=== PATIENT | female | born 1965 | race Caucasian/White ===

== ENCOUNTER 2018-11-18 21:37 | Emergency (ER) | payer MEDICAID ==
[~2018-11-18] VITALS: Ht 160 cm; Wt 79.5 kg
[2018-11-18 21:42] VITALS: BP 134/95; TEMP 99
[2018-11-18 22:40] LABS: MEAN CELL VOLUME 97 fl (80.0-100.0); MEAN CORPUSCULAR HEMOGLOBIN 32 pg (27.0-31.0); MEAN CORPUSCULAR HGB CONC 33 g/dl (33.0-37.0); MEAN PLATELET VOLUME 10.8 fl (7.4-10.4); PLATELET COUNT 175 K/mm3 (130-400); RED BLOOD COUNT 3.48 M/mm3 (4.10-5.30); REDCELL DISTRIBUTION WIDTH-CV 12.5 % (11.5-14.5)
[2018-11-18 22:42] LABS: HEMATOCRIT 33.7 % (37.0-47.0)
[2018-11-18 22:50] LABS: BILIRUBIN,TOTAL 0.4 mg/dL (0.0-1.0); CALCIUM 9.6 mg/dL (8.4-10.2); CREATININE, serum 0.59 (0.52-1.25); POTASSIUM 3.4 mmol/L (3.4-5.0); TOTAL PROTEIN 7.4 gm/dL (6.4-8.2)
[2018-11-18] MEDS ORDERED: TESSALON PERLE200 MG PO (23:12)
[2018-11-18] MEDS ORDERED: ZITHROMAX500 M2 PO (23:12)
[2018-11-18 23:17] LABS: BAND 17 % (0-10); BASOPHIL 1 % (0-2); EOSINOPHIL 1 % (0-4); HYPOCHROMIA 1+; LYMPHOCYTE 38 % (20.0-51.0); NEUTROPHILS 40 % (42.0-75.2); PLATELET ESTIMATE NORMAL (NORMAL)
[2018-11-19] MEDS ORDERED: CRESTOR5 MG PO (00:07)
[2018-11-19 01:00] VITALS: PULSE 75
[2018-11-19] MEDS ORDERED: LEVOXYL0.1 MG PO (02:23)
[2018-11-19] MEDS ORDERED: SINGULAIR 110 MG/TAB PO (02:24)
[2018-11-19] MEDS ORDERED: PROAIR HFA0.09 MG/AC IH (02:24)
[2018-11-19] MEDS ORDERED: PROVENTIL0.09 MG/A1 IH (02:24)
[2018-11-19] MEDS ORDERED: NAPROSYN500 MG PO (02:25)
== END 2018-11-19 01:00 | disposition home or self-care (01) ==
LOC: COL.ER 21:37
PROVIDERS: Emergency Medicine
DX: J18.1 Lobar pneumonia, unspecified organism (principal); E11.9 Type 2 diabetes mellitus without complications; E78.5 Hyperlipidemia, unspecified; E03.9 Hypothyroidism, unspecified; Z87.891 Personal history of nicotine dependence
CPT/HCPCS: A4216; J0696; J1885; J7030

== ENCOUNTER 2019-01-13 20:07 | Emergency (ER) | payer MEDICAID ==
[~2019-01-13] VITALS: Ht 160 cm; Wt 77.7 kg
[~2019-01-13 20:07] MED LIST: CRESTOR5 MG PO; LEVOXYL0.1 MG PO; NAPROSYN500 MG PO; PROAIR HFA0.09 MG/AC IH; PROVENTIL0.09 MG/A1 IH; SINGULAIR 110 MG/TAB PO; TESSALON PERLE200 MG PO; ZITHROMAX500 M2 PO
[2019-01-13 21:28] LABS: BASO % 0.3 % (0.0-2.0); EOS % 0.2 % (0-4.0); GRAN # 5.7 (1.4-6.5); GRAN % 89.7 % (42.2-75.2); HEMATOCRIT 29.7 % (37.0-47.0); HEMOGLOBIN 9.9 g/dl (12.5-16.0); LYMPH # 0.5 (1.2-3.4); LYMPH % 7.3 % (20.0-51.0); MEAN CELL VOLUME 95 fl (80.0-100.0); MEAN CORPUSCULAR HEMOGLOBIN 32 pg (27.0-31.0); MEAN CORPUSCULAR HGB CONC 33 g/dl (33.0-37.0); MEAN PLATELET VOLUME 11.1 fl (7.4-10.4); MONO # 0.1 (0.1-0.6); MONO % 1.9 % (1.7-9.3); PLATELET COUNT 122 K/mm3 (130-400); RED BLOOD COUNT 3.13 M/mm3 (4.10-5.30); REDCELL DISTRIBUTION WIDTH-CV 12.5 % (11.5-14.5)
[2019-01-13 21:32] LABS: COLLECTION METHOD CLEAN CATCH
[2019-01-13 21:41] LABS: BILIRUBIN,TOTAL 0.9 mg/dL (0.0-1.0); CREATININE, serum 0.6 (0.52-1.25); TOTAL PROTEIN 5.9 gm/dL (6.4-8.2)
[2019-01-13 21:43] LABS: POTASSIUM 2.9 mmol/L (3.4-5.0)
[2019-01-13 22:11] LABS: MUCOUS Present /lpf; PH 5 (5-8); SQUAMOUS EPITHELIAL 0-2 /hpf; URINE APPEARANCE Cloudy; URINE BACTERIA Rare /hpf; URINE BILIRUBIN Negative (NEGATIVE); URINE BLOOD Negative (NEGATIVE); URINE COLOR Yellow; URINE GLUCOSE Negative (NEGATIVE); URINE KETONE Negative (NEGATIVE); URINE LEUKOCYTE ESTERASE 2+ (NEGATIVE); URINE NITRATE Positive (NEGATIVE); URINE PROTEIN(semi-quant) 1+ (NEGATIVE); URINE UROBILINOGEN >=4.0 mg/dL (NEGATIVE)
[2019-01-13 23:41] VITALS: TEMP 98.1
[2019-01-14 02:30] VITALS: BP 107/58; PULSE 70
== END 2019-01-14 02:30 | disposition short-term general hospital (02) ==
LOC: COL.ER 20:07
PROVIDERS: Emergency Medicine
DX: A41.9 Sepsis, unspecified organism (principal); N39.0 Urinary tract infection, site not specified; R65.21 Severe sepsis with septic shock; N12 Tubulo-interstitial nephritis, not specified as acute or chronic; E11.9 Type 2 diabetes mellitus without complications; E78.5 Hyperlipidemia, unspecified; E03.9 Hypothyroidism, unspecified; Z90.49 Acquired absence of other specified parts of digestive tract
CPT/HCPCS: J2543; J3010; J7030; J7060; Q9967

== ENCOUNTER 2019-01-29 13:58 | Emergency (ER) | payer MEDICAID ==
[~2019-01-29] VITALS: Ht 160 cm; Wt 77.7 kg
[2019-01-29 14:13] VITALS: TEMP 97.7
[2019-01-29 14:34] LABS: COLLECTION METHOD CLEAN CATCH
[2019-01-29 14:39] LABS: PH 5 (5-8); URINE APPEARANCE Clear; URINE COLOR Yellow; URINE GLUCOSE Negative (NEGATIVE); URINE KETONE Negative (NEGATIVE); URINE PROTEIN(semi-quant) Negative (NEGATIVE)
[2019-01-29 14:40] LABS: MUCOUS Present /lpf; URINE BACTERIA None Seen /hpf; URINE BILIRUBIN Negative (NEGATIVE); URINE BLOOD Negative (NEGATIVE); URINE LEUKOCYTE ESTERASE Negative (NEGATIVE); URINE NITRATE Negative (NEGATIVE); URINE RBC 0-2 /hpf; URINE UROBILINOGEN Negative (NEGATIVE)
[2019-01-29 15:37] LABS: BASO # 0.1 (0.0-0.2); EOS # 0.1 (0.0-0.7); GRAN # 2.9 (1.4-6.5); GRAN % 46.9 % (42.2-75.2); HEMATOCRIT 38.5 % (37.0-47.0); HEMOGLOBIN 12.3 g/dl (12.5-16.0); LYMPH # 2.6 (1.2-3.4); LYMPH % 42.2 % (20.0-51.0); MEAN CELL VOLUME 98 fl (80.0-100.0); MEAN CORPUSCULAR HEMOGLOBIN 31 pg (27.0-31.0); MEAN CORPUSCULAR HGB CONC 32 g/dl (33.0-37.0); MEAN PLATELET VOLUME 10.9 fl (7.4-10.4); MONO # 0.5 (0.1-0.6); MONO % 7.6 % (1.7-9.3); PLATELET COUNT 233 K/mm3 (130-400); RED BLOOD COUNT 3.92 M/mm3 (4.10-5.30); REDCELL DISTRIBUTION WIDTH-CV 12.6 % (11.5-14.5)
[2019-01-29 15:41] LABS: ALBUMIN 4.2 gm/dL (3.5-5.0); BILIRUBIN,TOTAL 0.6 mg/dL (0.0-1.0); C-REACTIVE PROTEIN 0.5 mg/dL (0.0-0.9); CALCIUM 9.8 mg/dL (8.4-10.2); CREATININE, serum 0.63 (0.52-1.25); POTASSIUM 3.9 mmol/L (3.4-5.0); TOTAL PROTEIN 7.8 gm/dL (6.4-8.2)
[2019-01-29 16:21] VITALS: BP 126/86; PULSE 69
== END 2019-01-29 16:27 | disposition home or self-care (01) ==
LOC: COL.ER 13:58
PROVIDERS: Physician Assistant
DX: R10.9 Unspecified abdominal pain (principal); E03.9 Hypothyroidism, unspecified; J45.909 Unspecified asthma, uncomplicated; E78.5 Hyperlipidemia, unspecified; Z87.891 Personal history of nicotine dependence; Z98.890 Other specified postprocedural states; Z90.49 Acquired absence of other specified parts of digestive tract
CPT/HCPCS: J1885; J7030

== ENCOUNTER 2019-06-04 12:42 | Emergency (ER) | payer MEDICAID ==
[~2019-06-04] VITALS: Ht 160 cm; Wt 82.7 kg
[2019-06-04 12:48] VITALS: BP 142/84; TEMP 98
[2019-06-04] MEDS ORDERED: NORCO 325 MG-51 TAB PO (13:00)
[2019-06-04] MEDS ORDERED: AMOXICILLIN 8751 TAB PO (13:00)
[2019-06-04 13:06] VITALS: PULSE 82
== END 2019-06-04 13:06 | disposition home or self-care (01) ==
LOC: COL.ER 12:42
DX: K04.7 Periapical abscess without sinus (principal); K02.9 Dental caries, unspecified

== ENCOUNTER 2019-11-13 11:03 | Emergency (ER) | payer MEDICAID ==
[~2019-11-13] VITALS: Ht 160 cm; Wt 77.3 kg
[~2019-11-13 11:03] MED LIST changes: +AMOXICILLIN 8751 TAB PO; +CEFTIN 250250 MG/TAB PO; +CYMBALTA 30MG30 MG PO; +FLOVENT 110MCG7.9 GM IH; +LIPITOR 10MG10 MG PO; +NORCO 325 MG-51 TAB PO
[2019-11-13 11:21] VITALS: TEMP 99.2
[2019-11-13 13:01] LABS: BASO # 0.1 (0.0-0.2); BASO % 0.5 % (0.0-2.0); EOS # 0.2 (0.0-0.7); GRAN # 5.5 (1.4-6.5); GRAN % 59.1 % (42.2-75.2); HEMOGLOBIN 12.9 g/dl (12.5-16.0); LYMPH # 2.9 (1.2-3.4); LYMPH % 30.6 % (20.0-51.0); MEAN CELL VOLUME 98 fl (80.0-100.0); MEAN CORPUSCULAR HEMOGLOBIN 32 pg (27.0-31.0); MEAN CORPUSCULAR HGB CONC 33 g/dl (33.0-37.0); MEAN PLATELET VOLUME 10.7 fl (7.4-10.4); MONO # 0.7 (0.1-0.6); MONO % 7.3 % (1.7-9.3); PLATELET COUNT 223 K/mm3 (130-400); RED BLOOD COUNT 3.98 M/mm3 (4.10-5.30); REDCELL DISTRIBUTION WIDTH-CV 12.5 % (11.5-14.5)
[2019-11-13 13:21] LABS: ALBUMIN 4.7 gm/dL (3.5-5.0); BILIRUBIN,TOTAL 0.5 mg/dL (0.0-1.0); CALCIUM 10.1 mg/dL (8.4-10.2); CREATININE, serum 0.64 (0.52-1.25); TOTAL PROTEIN 8.2 gm/dL (6.4-8.2)
[2019-11-13 14:51] LABS: COLLECTION METHOD CLEAN CATCH
[2019-11-13 15:05] LABS: MUCOUS Present /lpf; PH 5 (5-8); SQUAMOUS EPITHELIAL 0-2 /hpf; URINE APPEARANCE Hazy; URINE BACTERIA None Seen /hpf; URINE BILIRUBIN Negative (NEGATIVE); URINE BLOOD Negative (NEGATIVE); URINE COLOR Yellow; URINE GLUCOSE Negative (NEGATIVE); URINE KETONE Negative (NEGATIVE); URINE LEUKOCYTE ESTERASE Trace (NEGATIVE); URINE NITRATE Negative (NEGATIVE); URINE PROTEIN(semi-quant) Negative (NEGATIVE); URINE RBC 0-2 /hpf; URINE UROBILINOGEN Negative (NEGATIVE)
[2019-11-13 16:15] VITALS: BP 104/61; PULSE 84
== END 2019-11-13 16:04 | disposition home or self-care (01) ==
LOC: COL.ER 11:03
PROVIDERS: Nurse Practitioner Primary Care
DX: R50.9 Fever, unspecified (principal); R05 Cough; E11.9 Type 2 diabetes mellitus without complications; J45.909 Unspecified asthma, uncomplicated; F32.9 Major depressive disorder, single episode, unspecified; Z20.828 Contact with and (suspected) exposure to other viral communicable diseases; Z79.51 Long term (current) use of inhaled steroids; Z90.89 Acquired absence of other organs
CPT/HCPCS: J1170; J2405; J7040

== ENCOUNTER 2019-12-12 02:08 | Observation (INO) | payer MEDICAID ==
[~2019-12-12] VITALS: Ht 160 cm; Wt 86.9 kg
[2019-12-12 02:39] LABS: BASO % 0.4 % (0.0-2.0); EOS # 0.2 (0.0-0.7); GRAN # 4.5 (1.4-6.5); GRAN % 52.9 % (42.2-75.2); HEMOGLOBIN 11.3 g/dl (12.5-16.0); LYMPH % 35.7 % (20.0-51.0); MEAN CELL VOLUME 99 fl (80.0-100.0); MEAN CORPUSCULAR HEMOGLOBIN 33 pg (27.0-31.0); MEAN CORPUSCULAR HGB CONC 33 g/dl (33.0-37.0); MEAN PLATELET VOLUME 10.4 fl (7.4-10.4); MONO # 0.7 (0.1-0.6); MONO % 8.5 % (1.7-9.3); PLATELET COUNT 225 K/mm3 (130-400); RED BLOOD COUNT 3.48 M/mm3 (4.10-5.30); REDCELL DISTRIBUTION WIDTH-CV 12.1 % (11.5-14.5)
[2019-12-12 02:44] LABS: HEMATOCRIT 34.4 % (37.0-47.0)
[2019-12-12 02:49] LABS: ALANINE AMINOTRANSFERASE 70 U/L (4-34); ALBUMIN 4.3 gm/dL (3.5-5.0); ALKALINE PHOSPHATASE 95 U/L (50-136); ANION GAP 8 mmol/L (7-16); AST,SGOT 83 U/L (15-37); BILIRUBIN,TOTAL 0.4 mg/dL (0.0-1.0); BLOOD UREA NITROGEN 17 mg/dL (7-17); CALCIUM 9.7 mg/dL (8.4-10.2); CARBON DIOXIDE 23 mmol/L (22-30); CHLORIDE 104 mmol/L (98-107); CREATININE, serum 0.84 (0.52-1.25); GLUCOSE 119 mg/dL (74-106); LIPASE 104 U/L (23-300); MAGNESIUM 1.9 mg/dL (1.6-2.3); POTASSIUM 4.2 mmol/L (3.4-5.0); SODIUM 135 mmol/L (137-145); TOTAL PROTEIN 7.6 gm/dL (6.4-8.2)
[2019-12-12 03:04] LABS: TROPONIN-I < 0.012 ng/mL (0.000-0.035)
[2019-12-12 03:32] LABS: COLLECTION METHOD CLEAN CATCH
[2019-12-12 03:38] LABS: PH 5 (5-8); SQUAMOUS EPITHELIAL 0-2 /hpf; URINE APPEARANCE Clear; URINE BACTERIA Rare /hpf; URINE BILIRUBIN Negative (NEGATIVE); URINE BLOOD Negative (NEGATIVE); URINE COLOR Yellow; URINE GLUCOSE Negative (NEGATIVE); URINE KETONE Negative (NEGATIVE); URINE LEUKOCYTE ESTERASE Trace (NEGATIVE); URINE NITRATE Negative (NEGATIVE); URINE PROTEIN(semi-quant) Negative (NEGATIVE); URINE RBC 0-2 /hpf; URINE UROBILINOGEN Negative (NEGATIVE)
[2019-12-12 07:52] LABS: CHOLESTEROL RISK RATIO 3.9
[2019-12-12 08:28] VITALS: BP 95/45; PULSE 73; TEMP 98.2
--- NOTE | 2019-12-12 10:58 | NUR ---
PATIENT HAS BEEN STABLE SINCE ARRIVING TO THE FLOOR. STATES PAIN HAS RETURNED IN THE LEFT ARM CHEST AREA. PRN PAIN MEDICATION WILL BE PROVIDED PER ORDERS. OTHER THAN THAT SHE IS CONFORTABLE. IV LOOKED LEAKY BUT FLUSHED WELL. NO OTHER NEEDS AT THIS TIME. cALL LIGHT IS IN REACH.
[2019-12-12] MEDS ORDERED: PRILOSEC 20MG20 MG PO (11:11)
[2019-12-12 12:44] VITALS: BP 112/71; PULSE 76; TEMP 97.7
--- NOTE | 2019-12-12 16:09 | NUR ---
Patient has been feeling beeter since recieving meds this morning. sh ehas been resting comfortably in and out of sleep this afternoon. is currently at the bedside. States she is comfortable. No other needs at this time. Call light is in reach. Will continue to monitor.
--- NOTE | 2019-12-12 16:23 | NUR ---
MARIA D met with the patient and her , Ismael (ph#[phone]), to discuss discharge plan. The patient lives in [place] with her , two sons, and brother. She reports independence with ADLs and does not have any DME. The patient's PCP is Dr. Donny Davis and she receives her medications at [facility]. She reports occasional difficulties affording her meds. The patient does not have advanced directives completed, but she was interested in obtaining a form for DPOA-HC. MARIA D provided. The patient was also interested in meals on wheels and food assistance. MARIA D provided the patient with the phone number for meals on wheels and provided her information and the phone number for [place] [employer]. The patient plans to return home with her family upon discharge. No additional needs at this time.
[2019-12-12 17:35] VITALS: BP 113/70; PULSE 80; TEMP 98
--- NOTE | 2019-12-12 17:58 | NUR ---
PT WAS COMPLAINING OF ABDOMINAL PAIN IN THE AREA OF HER HERNIA. REQUESTED TRAMADOL SHE RECIEVED EARLIER. PRN DOSE WAS GIVEN. NO OTHER NEEDS AT THIS TIME. CALL LIGHT IS IN REACH.
[2019-12-12 19:28] VITALS: BP 114/62; PULSE 85; TEMP 98
--- NOTE | 2019-12-12 20:30 | NUR ---
Initial shift assessment done- states feeling pretty good tonight- denies chest pain, Tele on, requesting her night inhaler- resp called to inform,, states no BM for specimen- wondering if she should have a stool softener-would like me to call to see--will give apple juice at this time,,Did let PA know and states no new orders at this time. Does have headache 01/15- will give Tylenol at this time.
[2019-12-12 23:31] VITALS: BP 107/55; PULSE 78; TEMP 98.1
[2019-12-13 03:42] VITALS: BP 107/65; PULSE 87; TEMP 98.8
[2019-12-13 05:05] VITALS: BP 130/85
--- NOTE | 2019-12-13 05:05 | NUR ---
States headache is pounding 03/18- was given tylenol an hour ago- Tramadol given at this time- immediately had very large emesis-- ice bag to head/neck-- within 10 minutes vomited x4,, Dr. Campos called and order obtained for Zofran and Morphine IV for severe headache,, also states ok to just D/C Nitropaste- VSS
--- NOTE | 2019-12-13 05:42 | NUR ---
Feeling slightly better- sitting up in chair- bed made - requesting sprite and saltine cracker-- pt very apprciative of DR Campos for ordering meds that were given-
[2019-12-13 06:05] LABS: BASO % 0.5 % (0.0-2.0); EOS # 0.1 (0.0-0.7); EOS % 1.4 % (0-4.0); GRAN # 3.9 (1.4-6.5); GRAN % 51.3 % (42.2-75.2); LYMPH % 39.1 % (20.0-51.0); MEAN CELL VOLUME 99 fl (80.0-100.0); MEAN CORPUSCULAR HEMOGLOBIN 32 pg (27.0-31.0); MEAN CORPUSCULAR HGB CONC 32 g/dl (33.0-37.0); MEAN PLATELET VOLUME 10.7 fl (7.4-10.4); MONO # 0.6 (0.1-0.6); MONO % 7.3 % (1.7-9.3); PLATELET COUNT 211 K/mm3 (130-400); RED BLOOD COUNT 3.74 M/mm3 (4.10-5.30); REDCELL DISTRIBUTION WIDTH-CV 12.2 % (11.5-14.5)
[2019-12-13 06:29] LABS: ALBUMIN 4.5 gm/dL (3.5-5.0); BILIRUBIN,TOTAL 0.6 mg/dL (0.0-1.0); CALCIUM 9.6 mg/dL (8.4-10.2); CREATININE, serum 0.59 (0.52-1.25); MAGNESIUM 2.2 mg/dL (1.6-2.3); POTASSIUM 4.3 mmol/L (3.4-5.0); TOTAL PROTEIN 8.1 gm/dL (6.4-8.2)
[2019-12-13 08:18] VITALS: BP 115/67; PULSE 89; TEMP 97.9
--- NOTE | 2019-12-13 09:25 | NUR ---
PATIENT ASSESSMENT COMPLETED. SHE DENIES ANY NEED FOR FURTHER PAIN MEDICATION AT THIS TIME. AT BEDSIDE.
--- NOTE | 2019-12-13 10:24 | NUR ---
PATIENT GIVEN TYLENOL AND ULTRAM FOR HEADACHE.
--- NOTE | 2019-12-13 10:25 | NUR ---
PATIENT ASKS FOR IV MEDICATION FOR HEADACHE. SHE STATES SHE MIGHT BE GOING HOME TODAY I TALKED WITH HER ABOUT TAKING THE ORAL MEDICATIONS FIRST THEN MAYBE IF THAT DOESN'T WORK THEN I WILL GIVE HER PRN MORPHINE.
[2019-12-13] MEDS ORDERED: ZOFRAN 4MG T4 MG/TAB PO (11:57)
[2019-12-13] MEDS ORDERED: IMITREX50 MG PO (11:58)
[2019-12-13] MEDS ORDERED: ASPIRIN 81M81 MG/TA2 PO (11:59)
[2019-12-13 12:14] VITALS: BP 100/57; PULSE 92; TEMP 97.9
--- NOTE | 2019-12-13 14:20 | NUR ---
PATIENT DISCHARGED TO HOME VIA WHEELCHAIR WITH AND BELONGINGS. SHE DENIES QUESTIONS ABOUT DISCHARGE PAPERWORK. TELE IS REMOVE AND IV REMOVED WITH CATH INTACT.
[2019-12-15] MEDS ORDERED: ASPIRIN E.C. 8181 MG PO (07:40)
[2019-12-15] MEDS ORDERED: FLOVENT 110MCG7.9 GM IH (07:44)
[2019-12-15] MEDS ORDERED: CYMBALTA 60MG60 MG PO (07:45)
[2019-12-15] MEDS ORDERED: ZOFRAN 4MG T4 MG/TAB PO (07:47)
[2019-12-15] MEDS ORDERED: IMITREX50 MG PO (07:48)
== END 2019-12-13 14:20 | disposition home or self-care (01) ==
LOC: COL.ER 02:08 → MEDICAL 04:07
PROVIDERS: Emergency Medicine; Internal Medicine; Physician Assistant
DX: R07.89 Other chest pain (principal); R19.7 Diarrhea, unspecified; R94.5 Abnormal results of liver function studies; R73.03 Prediabetes; E03.9 Hypothyroidism, unspecified; J45.909 Unspecified asthma, uncomplicated; M79.622 Pain in left upper arm; E78.1 Pure hyperglyceridemia; K21.9 Gastro-esophageal reflux disease without esophagitis; K76.0 Fatty (change of) liver, not elsewhere classified; F32.9 Major depressive disorder, single episode, unspecified; Z90.49 Acquired absence of other specified parts of digestive tract; Z79.899 Other long term (current) drug therapy; Z86.718 Personal history of other venous thrombosis and embolism; Z83.3 Family history of diabetes mellitus; Z82.49 Family history of ischemic heart disease and other diseases of the circulatory system
CPT/HCPCS: G0378; J1170; J1650; J2270; J2405; J7030

== ENCOUNTER → 2019-12-15 | Outpatient (CLI) | payer MEDICAID ==
[~2019-12-15] VITALS: Ht 160 cm; Wt 84.5 kg
[~2019-12-15] MED LIST changes: +ASPIRIN 81M81 MG/TA2 PO; +ASPIRIN E.C. 8181 MG PO; +CYMBALTA 60MG60 MG PO; +IMITREX50 MG PO; +PRILOSEC 20MG20 MG PO; +ZOFRAN 4MG T4 MG/TAB PO
[2019-12-15 07:49] VITALS: BP 125/82; PULSE 94
[2019-12-15 09:00] VITALS: BP 126/82; PULSE 18
[2019-12-15 09:01] VITALS: BP 117/72; PULSE 114
[2019-12-15 09:02] VITALS: BP 112/70; PULSE 121
[2019-12-15 09:03] VITALS: BP 122/76; PULSE 114
[2019-12-15 09:04] VITALS: BP 133/80; PULSE 107
== END ==
LOC: COL.CARD 07:25
DX: R07.9 Chest pain, unspecified (principal)
CPT/HCPCS: A9500; J2785

== ENCOUNTER → 2020-09-20 | Outpatient (CLI) | payer MEDICAID ==
[~2020-09-20] MED LIST changes: +B-121000 MCG PO; +CALCIUM CITRAT200 M2 PO; +CELEBREX 1100 MG/CAP PO; +EPA FISH OIL1 SGL PO; +PROTONIX20 MG PO; +SYNTHROID0.112 MG/T PO; +VITAMIND3 5000 PO
== END ==
LOC: COL.RAD 08:11
DX: K76.0 Fatty (change of) liver, not elsewhere classified (principal)

== ENCOUNTER 2020-10-21 08:54 | Day surgery (SDC) | payer MEDICAID ==
[~2020-10-21] VITALS: Ht 160.1 cm; Wt 82.3 kg
[2020-10-21] VITALS (9 sets, daily range): BP systolic 95–127; BP diastolic 64–81; PULSE 64–86; TEMP 98
[~2020-10-21 08:54] MED LIST changes: -B-121000 MCG PO; -CALCIUM CITRAT200 M2 PO; -CELEBREX 1100 MG/CAP PO; -EPA FISH OIL1 SGL PO; -PROTONIX20 MG PO; -SYNTHROID0.112 MG/T PO; -VITAMIND3 5000 PO
[2020-10-21 10:07] LABS: HEMATOCRIT 38.3 % (37.0-47.0); HEMOGLOBIN 12.6 g/dl (12.5-16.0); MEAN CELL VOLUME 97 fl (80.0-100.0); MEAN CORPUSCULAR HEMOGLOBIN 32 pg (27.0-31.0); MEAN CORPUSCULAR HGB CONC 33 g/dl (33.0-37.0); PLATELET COUNT 196 K/mm3 (130-400); RED BLOOD COUNT 3.95 M/mm3 (4.10-5.30); REDCELL DISTRIBUTION WIDTH-CV 11.9 % (11.5-14.5)
[2020-10-21 10:08] LABS: CALCIUM 9.7 mg/dL (8.4-10.2); CREATININE, serum 0.62 (0.52-1.25); POTASSIUM 3.8 mmol/L (3.4-5.0)
[2020-10-21 10:22] LABS: INR 1.1 (0.8-3.0); PROTHROMBIN TIME 11.8 SECONDS (9.7-12.8)
[2020-10-21 10:24] LABS: PARTIAL THROMBOPLASTIN TIME 31.2 SECONDS (26.0-37.0)
[2020-10-21] MEDS ORDERED: LIPITOR 10MG10 MG PO (10:37)
[2020-10-21] MEDS ORDERED: CALCIUM CITRAT200 M2 PO (10:38)
[2020-10-21] MEDS ORDERED: CELEBREX 1100 MG/CAP PO (10:38)
[2020-10-21] MEDS ORDERED: B-121000 MCG PO (10:40)
[2020-10-21] MEDS ORDERED: EPA FISH OIL1 SGL PO (10:41)
[2020-10-21] MEDS ORDERED: FLOVENT 110MCG7.9 GM IH (10:42)
[2020-10-21] MEDS ORDERED: SYNTHROID0.112 MG/T PO (10:43)
[2020-10-21] MEDS ORDERED: PROTONIX20 MG PO (10:44)
[2020-10-21] MEDS ORDERED: VITAMIND3 5000 PO (10:45)
--- NOTE | 2020-10-21 16:10 | NUR ---
Air has been removed from TR band in 2 ml increments without bleeding or complication. Rt radial puncture site dressed with folded 2x2 and robbie. DC instructions reviewed at length with pt who expresses understanding. She is steady on feet to restroom. IV DC'd with catheter intact. She is assisted out to son's car by wheelchair with personal belongings.
== END 2020-10-21 16:10 | disposition home or self-care (01) ==
LOC: COL.CAR 08:54
PROVIDERS: Internal Medicine Cardiovascular Disease
DX: R07.89 Other chest pain (principal); R06.00 Dyspnea, unspecified; E78.2 Mixed hyperlipidemia; J45.909 Unspecified asthma, uncomplicated; R73.03 Prediabetes; E03.9 Hypothyroidism, unspecified; E78.5 Hyperlipidemia, unspecified; M19.90 Unspecified osteoarthritis, unspecified site; G47.30 Sleep apnea, unspecified; D50.9 Iron deficiency anemia, unspecified; K21.9 Gastro-esophageal reflux disease without esophagitis; K76.0 Fatty (change of) liver, not elsewhere classified; Z86.16 Personal history of COVID-19; Z20.822 Contact with and (suspected) exposure to COVID-19; Z87.891 Personal history of nicotine dependence; Z79.82 Long term (current) use of aspirin; Z79.890 Hormone replacement therapy; Z79.899 Other long term (current) drug therapy
CPT/HCPCS: C1769; J1644; J2250; J3010

== ENCOUNTER 2021-07-07 18:36 | Emergency (ER) | payer MEDICAID ==
[~2021-07-07] VITALS: Ht 160 cm; Wt 79.5 kg
[~2021-07-07 18:36] MED LIST changes: +B-121000 MCG PO; +CALCIUM CITRAT200 M2 PO; +CELEBREX 1100 MG/CAP PO; +EPA FISH OIL1 SGL PO; +PROTONIX20 MG PO; +SYNTHROID0.112 MG/T PO; +VITAMIND3 5000 PO
[2021-07-07 18:44] VITALS: TEMP 98.5
[2021-07-07] MEDS ORDERED: ULTRAM 50MG TAB50 MG PO (19:25)
[2021-07-07] MEDS ORDERED: AMOXICILLIN 50500 MG PO (19:25)
[2021-07-07 19:48] VITALS: BP 150/91; PULSE 83
== END 2021-07-07 19:48 | disposition home or self-care (01) ==
LOC: COL.ER 18:36
DX: K02.9 Dental caries, unspecified (principal); E11.9 Type 2 diabetes mellitus without complications; E03.9 Hypothyroidism, unspecified; Z79.890 Hormone replacement therapy

== ENCOUNTER 2021-11-16 20:35 | Emergency (ER) | payer MEDICAID ==
[~2021-11-16] VITALS: Ht 160 cm; Wt 81.5 kg
[~2021-11-16 20:35] MED LIST changes: +AMOXICILLIN 50500 MG PO; +ULTRAM 50MG TAB50 MG PO
[2021-11-16 20:53] VITALS: TEMP 97.3
[2021-11-16 21:27] LABS: COLLECTION METHOD CLEAN CATCH
[2021-11-16 21:33] LABS: MUCOUS Present (NOT PRESENT); PH 5 (5-8); SQUAMOUS EPITHELIAL 0-2 /hpf (0-10); URINE APPEARANCE Clear (CLEAR/HAZY); URINE BACTERIA None Seen /hpf (NONE SEEN); URINE BILIRUBIN Negative (NEGATIVE); URINE BLOOD Negative (NEGATIVE); URINE COLOR Yellow (YELLOW); URINE GLUCOSE Negative (NEGATIVE); URINE KETONE Negative (NEGATIVE); URINE LEUKOCYTE ESTERASE Negative (NEGATIVE); URINE NITRATE Negative (NEGATIVE); URINE PROTEIN(semi-quant) Negative (NEGATIVE); URINE RBC None Seen /hpf (0-2); URINE UROBILINOGEN Negative (NEGATIVE)
[2021-11-16 21:44] LABS: BASO % 0.4 % (0.0-2.0); EOS # 0.2 K/mm3 (0.0-0.7); EOS % 1.9 % (0.0-4.0); GRAN # 4.6 K/mm3 (1.4-6.5); GRAN % 57.6 % (42.2-75.2); HEMOGLOBIN 11.7 g/dl (12.5-16.0); LYMPH # 2.6 K/mm3 (1.2-3.4); LYMPH % 33.1 % (20.0-51.0); MEAN CELL VOLUME 97 fl (80.0-100.0); MEAN CORPUSCULAR HEMOGLOBIN 32 pg (27-31); MEAN CORPUSCULAR HGB CONC 33 g/dl (33.0-37.0); MEAN PLATELET VOLUME 11.4 fl (7.4-10.4); MONO # 0.5 K/mm3 (0.1-0.6); MONO % 6.7 % (1.7-9.3); PLATELET COUNT 182 K/mm3 (130-400); REDCELL DISTRIBUTION WIDTH-CV 12.2 % (11.5-14.5)
[2021-11-16 22:02] LABS: ALBUMIN 3.9 gm/dL (3.5-5.0); BILIRUBIN,TOTAL 0.4 mg/dL (0.2-1.2); CALCIUM 9.6 mg/dL (8.4-10.2); CREATININE, serum 0.8 mg/dL (0.57-1.11); POTASSIUM 3.7 mmol/L (3.5-4.5); TOTAL PROTEIN 7.1 gm/dL (6.2-8.1)
[2021-11-16] MEDS ORDERED: NORCO 325 MG-51 TAB PO (23:22)
[2021-11-16] MEDS ORDERED: CEPHALEXIN500 M1 PO (23:26)
[2021-11-17 00:06] VITALS: BP 120/57; PULSE 72
== END 2021-11-17 00:06 | disposition home or self-care (01) ==
LOC: COL.ER 20:35
PROVIDERS: Personal Emergency Response Attendant
DX: R10.30 Lower abdominal pain, unspecified (principal); E11.9 Type 2 diabetes mellitus without complications; Z90.49 Acquired absence of other specified parts of digestive tract; Z98.890 Other specified postprocedural states; Z79.84 Long term (current) use of oral hypoglycemic drugs
CPT/HCPCS: J2270; J2405; J7040; Q9967

== ENCOUNTER 2021-12-11 13:45 | Emergency (ER) | payer MEDICAID ==
[~2021-12-11] VITALS: Ht 160 cm; Wt 77.3 kg
[~2021-12-11 13:45] MED LIST changes: +CEPHALEXIN500 M1 PO
[2021-12-11 13:59] VITALS: TEMP 98.5
[2021-12-11 14:26] LABS: BASO # 0.1 K/mm3 (0.0-0.2); BASO % 0.8 % (0.0-2.0); EOS # 0.7 K/mm3 (0.0-0.7); EOS % 9.2 % (0.0-4.0); GRAN # 3.2 K/mm3 (1.4-6.5); GRAN % 40.7 % (42.2-75.2); HEMOGLOBIN 11.6 g/dl (12.5-16.0); LYMPH # 3.4 K/mm3 (1.2-3.4); MEAN CELL VOLUME 98 fl (80.0-100.0); MEAN CORPUSCULAR HEMOGLOBIN 32 pg (27-31); MEAN CORPUSCULAR HGB CONC 33 g/dl (33.0-37.0); MONO # 0.5 K/mm3 (0.1-0.6); PLATELET COUNT 195 K/mm3 (130-400); RED BLOOD COUNT 3.61 M/mm3 (4.10-5.30); REDCELL DISTRIBUTION WIDTH-CV 12.5 % (11.5-14.5)
[2021-12-11 14:29] LABS: HEMATOCRIT 35.5 % (37.0-47.0)
[2021-12-11 14:33] LABS: PROTHROMBIN TIME 11.9 SECONDS (9.7-12.8)
[2021-12-11 14:35] LABS: PARTIAL THROMBOPLASTIN TIME 32.1 SECONDS (26.0-37.0)
[2021-12-11 14:44] LABS: ALANINE AMINOTRANSFERASE 23 U/L (0-55); ALBUMIN 3.6 gm/dL (3.5-5.0); ALKALINE PHOSPHATASE 70 U/L (40-150); ANION GAP 10 mmol/L (7-16); AST,SGOT 21 U/L (5-34); BILIRUBIN,TOTAL 0.4 mg/dL (0.2-1.2); BLOOD UREA NITROGEN 13 mg/dL (10-20); CALCIUM 9.1 mg/dL (8.4-10.2); CARBON DIOXIDE 21 mmol/L (22-29); CHLORIDE 112 mmol/L (98-107); CREATININE, serum 0.67 mg/dL (0.57-1.11); GLUCOSE 105 mg/dL (70-99); POTASSIUM 3.4 mmol/L (3.5-4.5); SODIUM 143 mmol/L (136-145); TOTAL PROTEIN 6.6 gm/dL (6.2-8.1)
[2021-12-11 14:53] LABS: TROPONIN-I < 0.010 ng/mL (0.00-0.033)
[2021-12-11] MEDS ORDERED: NORCO 325 MG-51 TAB PO (16:10)
[2021-12-11 18:00] VITALS: BP 123/87; PULSE 78
== END 2021-12-11 17:41 | disposition home or self-care (01) ==
LOC: COL.ER 13:45
PROVIDERS: Family Medicine
DX: R07.89 Other chest pain (principal); Z28.310 Unvaccinated for COVID-19
CPT/HCPCS: J2270

== ENCOUNTER 2021-12-29 11:15 | Outpatient (RCR) | payer MEDICAID | END 2022-01-05 | LOC: MKS.ESL.PT | DX: M47.892 Other spondylosis, cervical region (principal) | CPT/HCPCS: G0283-GP ==

== ENCOUNTER 2022-09-22 13:15 | Outpatient (RCR) | payer MEDICAID ==
[~2022-09-22 13:15] MED LIST changes: +MEDROL 4MG DOSPA4 MG PO
== END 2022-10-06 | disposition home or self-care (01) ==
LOC: MKS.ESL.PT
DX: M47.892 Other spondylosis, cervical region (principal)

== ENCOUNTER 2022-10-20 14:30 | Outpatient (RCR) | payer MEDICAID | END 2022-11-05 | disposition home or self-care (01) | LOC: MKS.ESL.PT | DX: M47.892 Other spondylosis, cervical region (principal) ==

== ENCOUNTER 2023-03-02 12:48 | Outpatient (RCR) | payer MEDICAID | END 2023-03-08 | disposition home or self-care (01) | LOC: MKS.ESL.PT | DX: M54.12 Radiculopathy, cervical region (principal) ==

== ENCOUNTER 2023-03-09 07:55 | Outpatient (RCR) | payer MEDICAID | END 2023-04-07 | LOC: MKS.ESL.PT | DX: M54.12 Radiculopathy, cervical region (principal) ==

== ENCOUNTER → 2023-06-19 | Outpatient (CLI) | payer MEDICAID | LOC: MHCPAIN 13:38 | DX: M48.02 Spinal stenosis, cervical region (principal); M47.812 Spondylosis without myelopathy or radiculopathy, cervical region; M54.12 Radiculopathy, cervical region | CPT/HCPCS: G0463 ==

== ENCOUNTER → 2023-07-26 | Outpatient (CLI) | payer MEDICAID ==
[~2023-07-26] MED LIST changes: +Atropine 1 MG/10 ML SYRINGE IV ONE; +Iohexol 300 - 10 ML VIAL ONE; +Lidocaine PF 2% (20 MG/ML) 2 ML VIAL ONE
== END ==
LOC: MHCPAIN 08:13
DX: M47.812 Spondylosis without myelopathy or radiculopathy, cervical region (principal)
CPT/HCPCS: J0461; J1100; Q9967

== ENCOUNTER → 2024-02-22 | Outpatient (CLI) | payer MEDICAID ==
[~2024-02-22] MED LIST changes: -Atropine 1 MG/10 ML SYRINGE IV ONE; -Iohexol 300 - 10 ML VIAL ONE; -Lidocaine PF 2% (20 MG/ML) 2 ML VIAL ONE
== END ==
LOC: COL.RAD 11:56
DX: M47.22 Other spondylosis with radiculopathy, cervical region (principal); M48.02 Spinal stenosis, cervical region

== ENCOUNTER → 2024-02-26 | Outpatient (CLI) | payer MEDICAID | LOC: MHCPAIN 15:20 | DX: M54.12 Radiculopathy, cervical region (principal); M50.30 Other cervical disc degeneration, unspecified cervical region; M48.02 Spinal stenosis, cervical region | CPT/HCPCS: G0463 ==

== ENCOUNTER → 2024-02-28 | Outpatient (CLI) | payer MEDICAID ==
[~2024-02-28] MED LIST changes: +Iohexol 300 - 10 ML VIAL ONE; +Lidocaine PF 2% (20 MG/ML) 2 ML VIAL ONE
== END ==
LOC: MHCPAIN 10:36
DX: M54.12 Radiculopathy, cervical region (principal); M54.2 Cervicalgia
CPT/HCPCS: J1100; Q9967